=== PATIENT | male | born 1945 | race Caucasian/White ===

== ENCOUNTER 2017-04-26 10:39 | Emergency (ER) | payer MEDICARE, OTHER ==
[~2017-04-26] VITALS: Ht 172.7 cm; Wt 89.4 kg
[~2017-04-26 10:39] MED LIST: ALBUTEROL0.09 MG/A1 INH; B121000 MCG/2 IM; BACTRIM DS 8001 TA1 PO; BUMETANIDE0.5 MG PO; BUMETANIDE1 MG PO; BUMEX0.5 MG PO; CARVEDILOL12.5 MG PO; CIPRO500 MG PO; COREG12.5 M1 PO; COREG6.25 MG PO; COUMADIN0.5 MG PO; Coumadin2 MG PO; DIGOX0.125 MG PO; DISALCID500 M1 PO; DISALCID750 MG PO; DOCUSATE SOD100 MG PO; ENALAPRIL MALEA20 MG PO; EPLERENONE25 MG PO; EPLERENONE50 MG PO; FENOFIBRATE145 M1 PO; FLECAINIDE ACE100 M1 PO; FLECAINIDE ACE100 MG PO; FLOMAX0.4 MG PO; FONDAPARIN7.5 MG/0.6 SC; GABAPENTIN100 M2 PO; GEMCOR600 MG PO; GEMFIBROZIL600 MG PO; HYDROCODONE BIT1 T11 PO; IMDUR SA30 MG PO; IMDUR30 MG PO; INSPRA50 MG PO; IRON325 M1 PO; K-Lor 20MEQ20 MEQ PO; KEFLEX500 MG PO; KLOR-CON20 MEQ PO; LANOXIN0.125 MG PO; LANTUS100 U/ML SC; LIPITOR40 MG PO; MAGNESIUM400 M1 PO; METOLAZONE2.5 MG PO; MEXILETINE150 MG PO; NIACIN500 M1 PO; NIACIN500 M3 PO; NOVOLIN R100 U/ML SC; OMEGA 3 FISH O1 EACH PO; OMEGA 31000 MG PO; PRAVACHOL40 MG PO; PULMICORT RESP0.5 MG INH; RANEXA500 M1 PO; SPIRIVA -- 3018 MCG INH; Synthroid,Levo50 MCG PO; TAMSULOSIN HCL0.4 MG PO; TROPICAMIDE 1% OP; VITAMIN C250 M1 PO; WARFARIN SOD5 MG PO; ZESTRIL,PRINIVIL5 MG PO; ZESTRIL10 MG PO
[2017-04-26] MEDS ORDERED: CEPHALEXIN500 M1 PO (10:58)
== END 2017-04-26 11:06 | disposition home or self-care (01) ==
LOC: ED 10:39
DX: S30.861A Insect bite (nonvenomous) of abdominal wall, initial encounter (principal); L03.311 Cellulitis of abdominal wall; Z88.5 Allergy status to narcotic agent; Z79.899 Other long term (current) drug therapy; Z79.02 Long term (current) use of antithrombotics/antiplatelets; W57.XXXA Bitten or stung by nonvenomous insect and other nonvenomous arthropods, initial encounter; Y93.9 Activity, unspecified; Y92.9 Unspecified place or not applicable; Y99.9 Unspecified external cause status

== ENCOUNTER 2017-05-19 15:48 | Emergency (ER) | payer MEDICARE, OTHER ==
[~2017-05-19] VITALS: Ht 172.7 cm; Wt 90.7 kg
[~2017-05-19 15:48] MED LIST changes: +CEPHALEXIN500 M1 PO
[2017-05-19] MEDS ORDERED: AMOXICILLIN500 M2 PO (16:12)
== END 2017-05-19 18:26 | disposition home or self-care (01) ==
LOC: ED 15:48
DX: S61.411A Laceration without foreign body of right hand, initial encounter (principal); Z79.899 Other long term (current) drug therapy; Z79.02 Long term (current) use of antithrombotics/antiplatelets; Z88.5 Allergy status to narcotic agent; W45.8XXA Other foreign body or object entering through skin, initial encounter; Y93.89 Activity, other specified; Y92.89 Other specified places as the place of occurrence of the external cause; Y99.8 Other external cause status

== ENCOUNTER 2019-10-25 08:23 | Emergency (ER) | payer MEDICARE, OTHER ==
[~2019-10-25] VITALS: Ht 172.7 cm; Wt 89.4 kg
[~2019-10-25 08:23] MED LIST changes: +AMOXICILLIN500 M2 PO
[2019-10-25 08:55] LABS: BASO # 0.1 10*3/uL (0.0-0.1); BASO % 0.6 % (0.0-1.0); EOS # 0.1 10*3/uL (0.0-0.4); EOS % 0.9 % (1.0-4.0); HEMATOCRIT 39.2 % (42.0-52.0); HEMOGLOBIN 13.1 g/dl (14.0-18.0); LYMPH # 3.3 10*3/uL (1.3-4.4); LYMPH % 37.1 % (27.0-41.0); MEAN CELL VOLUME 95.8 fl (80.0-94.0); MEAN CORPUSCULAR HGB CONC 33.4 g/dl (33.0-37.0); MEAN PLATELET VOLUME 9.7 fl (9.6-12.3); MONO # 0.8 10*3/uL (0.1-1.0); NEUT # 4.5 10*3/uL (2.3-7.9); PLATELET COUNT AUTOMATED 242 10*3/uL (130-400); RED BLOOD COUNT 4.09 10*6/uL (4.50-5.90); RED CELL DISTRI WIDTH 12.4 % (0-14.5); WHITE BLOOD COUNT 8.8 10*3/uL (4.8-10.8)
[2019-10-25 09:12] LABS: ALBUMIN 3.5 gm/dl (3.1-4.5); ALKALINE PHOSPHATASE 35 U/L (45-117); BUN 22 mg/dl (7-24); CHLORIDE 108 mmol/L (98-107); CREATININE 1.41 mg/dL (0.70-1.30); LIPASE 145 U/L (73-393); POTASSIUM 4.5 mmol/L (3.5-5.1); SGOT/AST 12 IU/L (3-35); SGPT/ALT 27 U/L (12-78); SODIUM 141 mmol/L (136-145); TOTAL PROTEIN 6.4 gm/dL (6.4-8.2)
[2019-10-25 09:14] LABS: TROPONIN I < 0.015 ng/ml (<0.045)
[2019-10-25 09:24] LABS: ACT PARTIAL THROMBO TIME 34.5 SECONDS (20.0-32.1); INTERNATIONAL NORM RATIO 2.3 (2.0-3.5)
== END 2019-10-25 11:51 | disposition home or self-care (01) ==
LOC: ED 08:23
PROVIDERS: Emergency Medicine
DX: S00.01XA Abrasion of scalp, initial encounter (principal); R79.1 Abnormal coagulation profile; E11.9 Type 2 diabetes mellitus without complications; I48.91 Unspecified atrial fibrillation; I50.9 Heart failure, unspecified; I11.0 Hypertensive heart disease with heart failure; Z88.6 Allergy status to analgesic agent; Z79.899 Other long term (current) drug therapy; Z79.01 Long term (current) use of anticoagulants; W06.XXXA Fall from bed, initial encounter; Y93.89 Activity, other specified; Y92.89 Other specified places as the place of occurrence of the external cause; Y99.8 Other external cause status

== ENCOUNTER 2020-11-17 01:16 | Emergency (ER) | payer MEDICARE, OTHER ==
[~2020-11-17] VITALS: Ht 172.7 cm; Wt 94.3 kg
[2020-11-17 01:59] LABS: BASO # 0.1 10*3/uL (0.0-0.1); BASO % 0.6 % (0.0-1.0); EOS # 0.1 10*3/uL (0.0-0.4); EOS % 0.8 % (1.0-4.0); LYMPH # 2.9 10*3/uL (1.3-4.4); LYMPH % 32.7 % (27.0-41.0); MEAN CELL VOLUME 96.2 fl (80.0-94.0); MEAN CORPUSCULAR HGB 30.9 pg (27.0-31.0); MEAN CORPUSCULAR HGB CONC 32.1 g/dl (33.0-37.0); MEAN PLATELET VOLUME 10.1 fl (9.6-12.3); MONO # 0.8 10*3/uL (0.1-1.0); MONO % 8.8 % (3.0-9.0); NEUT % 56.4 % (47.0-73.0); PLATELET COUNT AUTOMATED 332 10*3/uL (130-400); RED BLOOD COUNT 4.47 10*6/uL (4.50-5.90); RED CELL DISTRI WIDTH 13.6 % (0-14.5); WHITE BLOOD COUNT 8.9 10*3/uL (4.8-10.8)
[2020-11-17 02:17] LABS: ALBUMIN 3.3 gm/dl (3.1-4.5); CREATININE 1.6 mg/dL (0.70-1.30); POTASSIUM 3.8 mmol/L (3.5-5.1); TOTAL PROTEIN 7.1 gm/dL (6.4-8.2)
[2020-11-17 02:18] LABS: TROPONIN I 0.033 ng/ml (<0.045)
== END 2020-11-17 05:00 | disposition home or self-care (01) ==
LOC: ED 01:16
PROVIDERS: Internal Medicine
DX: I13.0 Hypertensive heart and chronic kidney disease with heart failure and stage 1 through stage 4 chronic kidney disease, or unspecified chronic kidney disease (principal); E11.22 Type 2 diabetes mellitus with diabetic chronic kidney disease; I50.21 Acute systolic (congestive) heart failure; N18.31 Chronic kidney disease, stage 3a; I48.20 Chronic atrial fibrillation, unspecified; J44.9 Chronic obstructive pulmonary disease, unspecified; Z88.8 Allergy status to other drugs, medicaments and biological substances; Z79.899 Other long term (current) drug therapy; Z79.01 Long term (current) use of anticoagulants; Z95.0 Presence of cardiac pacemaker; Z90.49 Acquired absence of other specified parts of digestive tract; Z79.4 Long term (current) use of insulin

== ENCOUNTER 2020-12-02 15:51 | Inpatient (IN) | payer OTHER ==
[~2020-12-02] VITALS: Ht 172.7 cm; Wt 92.5 kg
[2020-12-02 15:59] VITALS: BP 122/91
[2020-12-02 16:33] LABS: BASO % 0.5 % (0.0-1.0); EOS # 0.1 10*3/uL (0.0-0.4); EOS % 0.6 % (1.0-4.0); HEMATOCRIT 42.9 % (42.0-52.0); LYMPH # 2.9 10*3/uL (1.3-4.4); MEAN CELL VOLUME 97.9 fl (80.0-94.0); MEAN CORPUSCULAR HGB 30.6 pg (27.0-31.0); MEAN CORPUSCULAR HGB CONC 31.2 g/dl (33.0-37.0); MEAN PLATELET VOLUME 10.5 fl (9.6-12.3); MONO # 0.8 10*3/uL (0.1-1.0); MONO % 9.7 % (3.0-9.0); NEUT # 4.1 10*3/uL (2.3-7.9); NEUT % 51.8 % (47.0-73.0); PLATELET COUNT AUTOMATED 263 10*3/uL (130-400); RED BLOOD COUNT 4.38 10*6/uL (4.50-5.90); RED CELL DISTRI WIDTH 13.9 % (0-14.5); WHITE BLOOD COUNT 7.8 10*3/uL (4.8-10.8)
[2020-12-02 16:49] LABS: ACT PARTIAL THROMBO TIME 49.7 SECONDS (20.0-32.1)
[2020-12-02 16:52] LABS: ALBUMIN 3.5 gm/dl (3.1-4.5); ALKALINE PHOSPHATASE 40 U/L (45-117); BUN 25 mg/dl (7-24); CHLORIDE 111 mmol/L (98-107); CREATININE 1.63 mg/dL (0.70-1.30); LIPASE 94 U/L (73-393); POTASSIUM 4.6 mmol/L (3.5-5.1); SGOT/AST 19 IU/L (3-35); SGPT/ALT 28 U/L (12-78); SODIUM 144 mmol/L (136-145); TOTAL PROTEIN 6.9 gm/dL (6.4-8.2); TROPONIN I 0.028 ng/ml (<0.045)
[2020-12-02 16:58] LABS: INTERNATIONAL NORM RATIO 5.1 (2.0-3.5)
[2020-12-02 19:02] VITALS: BP 120/89
[2020-12-02 20:50] VITALS: BP 123/78
[2020-12-02 23:35] VITALS: BP 137/88
[2020-12-03] MEDS ORDERED: METOPROLOL SUCC25 M2 PO (01:24)
[2020-12-03] MEDS ORDERED: BUMETANIDE1 MG PO (02:07)
[2020-12-03] MEDS ORDERED: TOPROL XL25 MG PO (02:07)
[2020-12-03] MEDS ORDERED: BUMETANIDE0.5 MG PO (02:08)
[2020-12-03] MEDS ORDERED: NOVOLOG100 UNIT/1 SQ (02:09)
[2020-12-03] MEDS ORDERED: PROVENTIL HFA6.7 GM PO (02:11)
[2020-12-03] MEDS ORDERED: JARDIANCE25 MG PO (02:12)
[2020-12-03] MEDS ORDERED: PROSCAR5 M1 PO (02:12)
[2020-12-03] MEDS ORDERED: WARFARIN SOD5 MG PO ×2 (02:14→02:15)
[2020-12-03] MEDS ORDERED: NEURONTIN100 MG PO (02:16)
[2020-12-03] MEDS ORDERED: FLOMAX0.4 MG PO (02:16)
[2020-12-03] MEDS ORDERED: MEXILETINE150 MG PO (02:18)
[2020-12-03] MEDS ORDERED: INSPRA50 MG PO (02:18)
[2020-12-03] MEDS ORDERED: RANOLAZINE ER1000 MG PO (02:19)
[2020-12-03] MEDS ORDERED: PROTONIX20 MG PO (02:20)
[2020-12-03] MEDS ORDERED: VITAMIN B COMP1 EAC1 PO (02:21)
[2020-12-03] MEDS ORDERED: LIPITOR80 MG PO (02:22)
[2020-12-03] MEDS ORDERED: GLUCOPHAGE500 M1 PO (02:23)
[2020-12-03] MEDS ORDERED: DIGOX125 MCG PO (02:24)
[2020-12-03] MEDS ORDERED: OMEGA-31000 M1 PO (02:24)
[2020-12-03] MEDS ORDERED: LEVOTHYROXINE50 MCG PO (02:29)
[2020-12-03] MEDS ORDERED: STRIVERDI RESPIM4 GM PO (02:30)
[2020-12-03] MEDS ORDERED: FENOFIBRATE145 M1 PO (02:31)
[2020-12-03] MEDS ORDERED: POTASSIUM20 MEQ/16 PO (02:35)
[2020-12-03] MEDS ORDERED: ENTRESTO 49 MG1 EACH PO (02:40)
[2020-12-03 06:21] LABS: CREATININE 1.67 mg/dL (0.70-1.30); POTASSIUM 3.8 mmol/L (3.5-5.1)
[2020-12-03 06:22] LABS: BASO % 0.5 % (0.0-1.0); EOS # 0.1 10*3/uL (0.0-0.4); EOS % 0.7 % (1.0-4.0); HEMATOCRIT 41.7 % (42.0-52.0); LYMPH # 2.9 10*3/uL (1.3-4.4); LYMPH % 37.7 % (27.0-41.0); MEAN CELL VOLUME 97.7 fl (80.0-94.0); MEAN CORPUSCULAR HGB 30.2 pg (27.0-31.0); MEAN CORPUSCULAR HGB CONC 30.9 g/dl (33.0-37.0); MEAN PLATELET VOLUME 11.1 fl (9.6-12.3); MONO # 0.8 10*3/uL (0.1-1.0); MONO % 10.1 % (3.0-9.0); NEUT # 3.9 10*3/uL (2.3-7.9); NEUT % 50.6 % (47.0-73.0); PLATELET COUNT AUTOMATED 243 10*3/uL (130-400); RED BLOOD COUNT 4.27 10*6/uL (4.50-5.90); RED CELL DISTRI WIDTH 13.7 % (0-14.5); WHITE BLOOD COUNT 7.6 10*3/uL (4.8-10.8)
[2020-12-03 06:28] LABS: INTERNATIONAL NORM RATIO 4.2 (2.0-3.5)
[2020-12-03 08:00] VITALS: BP 113/88
[2020-12-03 12:00] VITALS: BP 125/68
[2020-12-03 16:00] VITALS: BP 91/54
[2020-12-03 20:00] VITALS: BP 98/62
[2020-12-04] VITALS: BP 98/55
[2020-12-04 06:37] LABS: BASO # 0.1 10*3/uL (0.0-0.1); BASO % 0.7 % (0.0-1.0); EOS # 0.1 10*3/uL (0.0-0.4); EOS % 0.9 % (1.0-4.0); HEMATOCRIT 44.7 % (42.0-52.0); LYMPH # 2.9 10*3/uL (1.3-4.4); LYMPH % 38.5 % (27.0-41.0); MEAN CELL VOLUME 95.9 fl (80.0-94.0); MEAN CORPUSCULAR HGB 30.7 pg (27.0-31.0); MEAN PLATELET VOLUME 10.9 fl (9.6-12.3); MONO # 0.8 10*3/uL (0.1-1.0); MONO % 11.1 % (3.0-9.0); NEUT # 3.6 10*3/uL (2.3-7.9); NEUT % 48.5 % (47.0-73.0); PLATELET COUNT AUTOMATED 256 10*3/uL (130-400); RED BLOOD COUNT 4.66 10*6/uL (4.50-5.90); RED CELL DISTRI WIDTH 13.6 % (0-14.5); WHITE BLOOD COUNT 7.5 10*3/uL (4.8-10.8)
[2020-12-04 06:52] LABS: INTERNATIONAL NORM RATIO 2.8 (2.0-3.5)
[2020-12-04 07:07] LABS: CREATININE 1.54 mg/dL (0.70-1.30); POTASSIUM 3.2 mmol/L (3.5-5.1); TOTAL PROTEIN 6.1 gm/dL (6.4-8.2)
[2020-12-04 08:00] VITALS: BP 91/68
[2020-12-04 12:00] VITALS: BP 100/56
[2020-12-04 16:00] VITALS: BP 100/62
[2020-12-04 20:00] VITALS: BP 99/57
[2020-12-05] VITALS: BP 94/62
[2020-12-05 06:34] LABS: INTERNATIONAL NORM RATIO 2.4 (2.0-3.5)
[2020-12-05 06:44] LABS: ALBUMIN 2.9 gm/dl (3.1-4.5); ALKALINE PHOSPHATASE 35 U/L (45-117); BUN 20 mg/dl (7-24); CHLORIDE 108 mmol/L (98-107); CREATININE 1.32 mg/dL (0.70-1.30); POTASSIUM 3.3 mmol/L (3.5-5.1); SGOT/AST 10 IU/L (3-35); SGPT/ALT 19 U/L (12-78); SODIUM 142 mmol/L (136-145); TOTAL PROTEIN 5.8 gm/dL (6.4-8.2)
[2020-12-05 08:00] VITALS: BP 130/68
[2020-12-05] MEDS ORDERED: JANTOVEN4 M1 PO (09:53)
== END 2020-12-05 13:30 | disposition home or self-care (01) | DRG 291 ==
LOC: ED 15:51 → 4E 17:36 → EDHOLD 17:36 → 4E 22:55
PROVIDERS: Emergency Medicine; Hospitalist; Internal Medicine; ADMIT Internal Medicine; ATTEND Internal Medicine
PROC: 4B02XTZ Measurement of Cardiac Defibrillator, External Approach (ICD-10-PCS; principal; 2020-12-04)
DX: I13.0 Hypertensive heart and chronic kidney disease with heart failure and stage 1 through stage 4 chronic kidney disease, or unspecified chronic kidney disease (principal); I50.23 Acute on chronic systolic (congestive) heart failure; E87.2 Acidosis; R65.10 Systemic inflammatory response syndrome (SIRS) of non-infectious origin without acute organ dysfunction; I47.2 Ventricular tachycardia; E11.22 Type 2 diabetes mellitus with diabetic chronic kidney disease; N18.31 Chronic kidney disease, stage 3a; E83.41 Hypermagnesemia; I48.91 Unspecified atrial fibrillation; D53.9 Nutritional anemia, unspecified; E78.5 Hyperlipidemia, unspecified; E87.8 Other disorders of electrolyte and fluid balance, not elsewhere classified; E11.65 Type 2 diabetes mellitus with hyperglycemia; I25.10 Atherosclerotic heart disease of native coronary artery without angina pectoris; Z20.822 Contact with and (suspected) exposure to COVID-19; Z88.6 Allergy status to analgesic agent; Z90.49 Acquired absence of other specified parts of digestive tract; Z95.810 Presence of automatic (implantable) cardiac defibrillator; Z98.52 Vasectomy status; Z82.49 Family history of ischemic heart disease and other diseases of the circulatory system; Z80.8 Family history of malignant neoplasm of other organs or systems; Z68.31 Body mass index [BMI] 31.0-31.9, adult

== ENCOUNTER 2021-03-14 15:38 | Emergency (ER) | payer MEDICARE, OTHER ==
[~2021-03-14] VITALS: Ht 248.9 cm; Wt 89.4 kg
[~2021-03-14 15:38] MED LIST changes: +DIGOX125 MCG PO; +ENTRESTO 49 MG1 EACH PO; +GLUCOPHAGE500 M1 PO; +JANTOVEN4 M1 PO; +JARDIANCE25 MG PO; +LEVOTHYROXINE50 MCG PO; +LIPITOR80 MG PO; +METOPROLOL SUCC25 M2 PO; +NEURONTIN100 MG PO; +NOVOLOG100 UNIT/1 SQ; +OMEGA-31000 M1 PO; +POTASSIUM20 MEQ/16 PO; +PROSCAR5 M1 PO; +PROTONIX20 MG PO; +PROVENTIL HFA6.7 GM PO; +RANOLAZINE ER1000 MG PO; +STRIVERDI RESPIM4 GM PO; +TOPROL XL25 MG PO; +VITAMIN B COMP1 EAC1 PO
[2021-03-14 16:25] LABS: BASO % 0.4 % (0.0-1.0); EOS % 0.4 % (1.0-4.0); HEMATOCRIT 41.3 % (42.0-52.0); LYMPH # 2.4 10*3/uL (1.3-4.4); LYMPH % 32.5 % (27.0-41.0); MEAN CORPUSCULAR HGB 30.2 pg (27.0-31.0); MEAN CORPUSCULAR HGB CONC 32.4 g/dl (33.0-37.0); MEAN PLATELET VOLUME 10.6 fl (9.6-12.3); MONO # 0.6 10*3/uL (0.1-1.0); MONO % 7.3 % (3.0-9.0); NEUT # 4.4 10*3/uL (2.3-7.9); NEUT % 58.9 % (47.0-73.0); PLATELET COUNT AUTOMATED 224 10*3/uL (130-400); RED BLOOD COUNT 4.44 10*6/uL (4.50-5.90); RED CELL DISTRI WIDTH 14.6 % (0-14.5); WHITE BLOOD COUNT 7.5 10*3/uL (4.8-10.8)
[2021-03-14 16:41] LABS: BUN 20 mg/dl (7-24); CHLORIDE 109 mmol/L (98-107); CREATININE 1.47 mg/dL (0.70-1.30); POTASSIUM 3.7 mmol/L (3.5-5.1); SODIUM 143 mmol/L (136-145)
[2021-03-14 16:42] LABS: TROPONIN I < 0.015 ng/ml (<0.045)
== END 2021-03-14 17:55 | disposition home or self-care (01) ==
LOC: ED 15:38
PROVIDERS: Emergency Medicine
DX: S06.309A Unspecified focal traumatic brain injury with loss of consciousness of unspecified duration, initial encounter (principal); S80.211A Abrasion, right knee, initial encounter; I13.0 Hypertensive heart and chronic kidney disease with heart failure and stage 1 through stage 4 chronic kidney disease, or unspecified chronic kidney disease; E11.22 Type 2 diabetes mellitus with diabetic chronic kidney disease; N18.30 Chronic kidney disease, stage 3 unspecified; I50.9 Heart failure, unspecified; E78.5 Hyperlipidemia, unspecified; I48.91 Unspecified atrial fibrillation; Z79.01 Long term (current) use of anticoagulants; Z88.6 Allergy status to analgesic agent; Z79.899 Other long term (current) drug therapy; Z79.4 Long term (current) use of insulin; Z90.49 Acquired absence of other specified parts of digestive tract; Z95.0 Presence of cardiac pacemaker; Z87.891 Personal history of nicotine dependence; W01.0XXA Fall on same level from slipping, tripping and stumbling without subsequent striking against object, initial encounter; Y93.89 Activity, other specified; Y92.096 Garden or yard of other non-institutional residence as the place of occurrence of the external cause; Y99.8 Other external cause status

== ENCOUNTER 2021-08-27 15:54 | Emergency (ER) | payer MEDICARE, OTHER | END 2021-08-27 17:00 | disposition left against medical advice (07) | LOC: ED 15:54 | DX: Z53.21 Procedure and treatment not carried out due to patient leaving prior to being seen by health care provider (principal) ==

== ENCOUNTER 2021-09-12 08:12 | Emergency (ER) | payer MEDICARE, OTHER ==
[~2021-09-12] VITALS: Ht 172.7 cm; Wt 81.6 kg
[2021-09-12 08:43] LABS: BASO % 0.4 % (0.0-1.0); EOS # 0.1 10*3/uL (0.0-0.4); EOS % 1.5 % (1.0-4.0); HEMATOCRIT 41.7 % (42.0-52.0); LYMPH # 1.9 10*3/uL (1.3-4.4); LYMPH % 25.8 % (27.0-41.0); MEAN CELL VOLUME 92.7 fl (80.0-94.0); MEAN CORPUSCULAR HGB CONC 32.4 g/dl (33.0-37.0); MEAN PLATELET VOLUME 10.3 fl (9.6-12.3); MONO # 0.7 10*3/uL (0.1-1.0); MONO % 9.8 % (3.0-9.0); NEUT # 4.5 10*3/uL (2.3-7.9); NEUT % 62.4 % (47.0-73.0); PLATELET COUNT AUTOMATED 238 10*3/uL (130-400); RED CELL DISTRI WIDTH 13.2 % (0-14.5); WHITE BLOOD COUNT 7.2 10*3/uL (4.8-10.8)
[2021-09-12 08:55] LABS: INTERNATIONAL NORM RATIO 1.2 (2.0-3.5)
[2021-09-12 09:02] LABS: ALBUMIN 3.4 gm/dl (3.1-4.5); CREATININE 1.63 mg/dL (0.70-1.30); POTASSIUM 3.4 mmol/L (3.5-5.1)
== END 2021-09-12 12:25 | disposition home or self-care (01) ==
LOC: ED 08:12
PROVIDERS: Emergency Medicine
DX: R07.9 Chest pain, unspecified (principal); E78.5 Hyperlipidemia, unspecified; I13.0 Hypertensive heart and chronic kidney disease with heart failure and stage 1 through stage 4 chronic kidney disease, or unspecified chronic kidney disease; E11.22 Type 2 diabetes mellitus with diabetic chronic kidney disease; N18.30 Chronic kidney disease, stage 3 unspecified; Z79.899 Other long term (current) drug therapy; Z88.8 Allergy status to other drugs, medicaments and biological substances; Z87.891 Personal history of nicotine dependence

== ENCOUNTER 2021-10-12 19:30 | Inpatient (IN) | payer MEDICARE, OTHER ==
[~2021-10-12] VITALS: Ht 172.7 cm; Wt 86.2 kg
[2021-10-12 19:36] VITALS: BP 95/69
[2021-10-12 19:55] LABS: BASO % 0.5 % (0.0-1.0); EOS % 0.7 % (1.0-4.0); HEMATOCRIT 41.1 % (42.0-52.0); LYMPH # 1.7 10*3/uL (1.3-4.4); LYMPH % 30.7 % (27.0-41.0); MEAN CELL VOLUME 92.6 fl (80.0-94.0); MEAN CORPUSCULAR HGB 29.1 pg (27.0-31.0); MEAN CORPUSCULAR HGB CONC 31.4 g/dl (33.0-37.0); MONO # 0.5 10*3/uL (0.1-1.0); MONO % 8.5 % (3.0-9.0); NEUT # 3.3 10*3/uL (2.3-7.9); NEUT % 59.4 % (47.0-73.0); PLATELET COUNT AUTOMATED 221 10*3/uL (130-400); RED BLOOD COUNT 4.44 10*6/uL (4.50-5.90); RED CELL DISTRI WIDTH 13.5 % (0-14.5); WHITE BLOOD COUNT 5.5 10*3/uL (4.8-10.8)
[2021-10-12 20:08] LABS: ACT PARTIAL THROMBO TIME 29.1 SECONDS (20.0-32.1); INTERNATIONAL NORM RATIO 1.2 (2.0-3.5)
[2021-10-12 20:10] LABS: ALBUMIN 3.3 gm/dl (3.1-4.5); CREATININE 1.65 mg/dL (0.70-1.30); POTASSIUM 4.3 mmol/L (3.5-5.1); TOTAL PROTEIN 6.6 gm/dL (6.4-8.2)
[2021-10-12 20:53] VITALS: BP 102/72
[2021-10-13] MEDS ORDERED: BUMETANIDE2 MG PO (03:06)
[2021-10-13 06:16] LABS: INTERNATIONAL NORM RATIO 1.1 (2.0-3.5)
[2021-10-13 06:26] LABS: ALBUMIN 3.3 gm/dl (3.1-4.5); BUN 18 mg/dl (7-24); CHLORIDE 106 mmol/L (98-107); CHOLESTEROL 103 mg/dL (<200); CREATININE 1.37 mg/dL (0.70-1.30); POTASSIUM 3.7 mmol/L (3.5-5.1); SGOT/AST 11 IU/L (3-35); SGPT/ALT 32 U/L (12-78); SODIUM 142 mmol/L (136-145); TOTAL PROTEIN 6.7 gm/dL (6.4-8.2); TRIGLYCERIDES 98 mg/dl (<150)
[2021-10-13 06:29] LABS: ALKALINE PHOSPHATASE 94 U/L (45-117); LDL CHOLESTEROL 34 mg/dL (9-159)
[2021-10-13 06:32] LABS: BASO % 0.7 % (0.0-1.0); EOS # 0.1 10*3/uL (0.0-0.4); EOS % 1.2 % (1.0-4.0); HEMATOCRIT 41.7 % (42.0-52.0); LYMPH # 2.3 10*3/uL (1.3-4.4); MEAN CELL VOLUME 93.9 fl (80.0-94.0); MEAN CORPUSCULAR HGB 29.1 pg (27.0-31.0); MEAN CORPUSCULAR HGB CONC 30.9 g/dl (33.0-37.0); MONO # 0.5 10*3/uL (0.1-1.0); NEUT # 2.9 10*3/uL (2.3-7.9); NEUT % 49.8 % (47.0-73.0); PLATELET COUNT AUTOMATED 211 10*3/uL (130-400); RED BLOOD COUNT 4.44 10*6/uL (4.50-5.90); RED CELL DISTRI WIDTH 13.6 % (0-14.5); WHITE BLOOD COUNT 5.9 10*3/uL (4.8-10.8)
[2021-10-13 08:05] VITALS: BP 102/64
[2021-10-13 16:00] VITALS: BP 142/84; BP 95/67
[2021-10-13] MEDS ORDERED: ELIQUIS5 M1 PO (18:38)
[2021-10-13] MEDS ORDERED: OMEPRAZOLE40 MG PO (18:39)
[2021-10-13] MEDS ORDERED: OZEMPIC1 MG/0.71 SQ (18:41)
[2021-10-13] MEDS ORDERED: VITAMIN C500 M5 PO (19:12)
[2021-10-13] MEDS ORDERED: TYLENOL325 M1 PO (19:12)
[2021-10-13] MEDS ORDERED: VITAMIN D325 MCG PO (19:16)
[2021-10-13] MEDS ORDERED: B121000 MCG/1 IM (19:42)
[2021-10-13] MEDS ORDERED: JARDIANCE10 MG PO (19:43)
[2021-10-13] MEDS ORDERED: EPLERENONE25 MG PO (19:44)
[2021-10-13] MEDS ORDERED: MAGNESIUM400 M1 PO (19:45)
[2021-10-13 20:58] VITALS: BP 103/68
[2021-10-14] VITALS (8 sets, daily range): BP systolic 82–102; BP diastolic 50–70
[2021-10-14] MEDS ORDERED: LANTUS SOL100 UNIT/1 SC (00:34)
[2021-10-14 06:44] LABS: BUN 16 mg/dl (7-24); CHLORIDE 109 mmol/L (98-107); CREATININE 1.25 mg/dL (0.70-1.30); POTASSIUM 3.4 mmol/L (3.5-5.1); SODIUM 144 mmol/L (136-145)
[2021-10-14 06:57] LABS: BASO % 0.7 % (0.0-1.0); EOS # 0.1 10*3/uL (0.0-0.4); EOS % 1.3 % (1.0-4.0); HEMATOCRIT 39.5 % (42.0-52.0); LYMPH # 1.8 10*3/uL (1.3-4.4); LYMPH % 33.3 % (27.0-41.0); MEAN CELL VOLUME 92.3 fl (80.0-94.0); MEAN CORPUSCULAR HGB 28.7 pg (27.0-31.0); MEAN CORPUSCULAR HGB CONC 31.1 g/dl (33.0-37.0); MEAN PLATELET VOLUME 10.8 fl (9.6-12.3); MONO # 0.5 10*3/uL (0.1-1.0); MONO % 9.6 % (3.0-9.0); NEUT % 54.9 % (47.0-73.0); PLATELET COUNT AUTOMATED 207 10*3/uL (130-400); RED BLOOD COUNT 4.28 10*6/uL (4.50-5.90); RED CELL DISTRI WIDTH 13.5 % (0-14.5); WHITE BLOOD COUNT 5.4 10*3/uL (4.8-10.8)
[2021-10-14] MEDS ORDERED: DOBUTAMINE IV (13:57)
[2021-10-15 06:25] LABS: BASO % 0.4 % (0.0-1.0); EOS # 0.1 10*3/uL (0.0-0.4); EOS % 1.1 % (1.0-4.0); HEMATOCRIT 41.6 % (42.0-52.0); LYMPH # 2.1 10*3/uL (1.3-4.4); LYMPH % 39.2 % (27.0-41.0); MEAN CELL VOLUME 92.7 fl (80.0-94.0); MEAN CORPUSCULAR HGB 29.2 pg (27.0-31.0); MEAN CORPUSCULAR HGB CONC 31.5 g/dl (33.0-37.0); MEAN PLATELET VOLUME 10.8 fl (9.6-12.3); MONO # 0.5 10*3/uL (0.1-1.0); MONO % 8.9 % (3.0-9.0); NEUT # 2.6 10*3/uL (2.3-7.9); PLATELET COUNT AUTOMATED 198 10*3/uL (130-400); RED BLOOD COUNT 4.49 10*6/uL (4.50-5.90); RED CELL DISTRI WIDTH 13.7 % (0-14.5); WHITE BLOOD COUNT 5.3 10*3/uL (4.8-10.8)
[2021-10-15 06:47] LABS: CREATININE 1.41 mg/dL (0.70-1.30); POTASSIUM 3.8 mmol/L (3.5-5.1)
[2021-10-15 08:00] VITALS: BP 100/62
[2021-10-15 12:00] VITALS: BP 96/57
[2021-10-15 16:00] VITALS: BP 91/58
[2021-10-15 18:50] VITALS: BP 76/56
[2021-10-15 20:00] VITALS: BP 87/54
[2021-10-16] VITALS: BP 89/63
[2021-10-16 05:30] VITALS: BP 90/61
[2021-10-16 06:58] LABS: CREATININE 1.69 mg/dL (0.70-1.30); POTASSIUM 4.2 mmol/L (3.5-5.1)
[2021-10-16 08:00] VITALS: BP 85/60
[2021-10-16 12:00] VITALS: BP 76/54
[2021-10-16 12:04] LABS: BILIRUBIN 1+ (Negative); BLOOD Negative (Negative); CLARITY Clear (Clear); COLOR Dark Yellow (Yellow); GLUCOSE Trace (Negative); KETONE Trace (Negative); LEUKO ESTERASE 1+ (Negative); NITRITE Negative (Negative); SPECIFIC GRAVITY 1.025 (1.001-1.030)
[2021-10-16 12:44] LABS: CALCIUM OXALATE CRYSTALS 1+
[2021-10-16 12:45] LABS: BACTERIA 2+; HYALINE CAST TNTC
== END 2021-10-16 15:14 | disposition short-term general hospital (02) | DRG 291 ==
LOC: ED 19:30 → EDHOLD 22:44 → 5E 22:44
PROVIDERS: Internal Medicine; ADMIT Family Medicine; ATTEND Family Medicine
DX: I13.0 Hypertensive heart and chronic kidney disease with heart failure and stage 1 through stage 4 chronic kidney disease, or unspecified chronic kidney disease (principal); I50.23 Acute on chronic systolic (congestive) heart failure; N17.0 Acute kidney failure with tubular necrosis; E44.0 Moderate protein-calorie malnutrition; Z66 Do not resuscitate; D64.9 Anemia, unspecified; N18.32 Chronic kidney disease, stage 3b; Z51.5 Encounter for palliative care; I25.10 Atherosclerotic heart disease of native coronary artery without angina pectoris; E83.41 Hypermagnesemia; I48.91 Unspecified atrial fibrillation; E11.22 Type 2 diabetes mellitus with diabetic chronic kidney disease; E11.65 Type 2 diabetes mellitus with hyperglycemia; Z79.4 Long term (current) use of insulin; Z95.810 Presence of automatic (implantable) cardiac defibrillator; Z79.51 Long term (current) use of inhaled steroids; Z79.899 Other long term (current) drug therapy; Z88.5 Allergy status to narcotic agent; Z87.891 Personal history of nicotine dependence; Z68.29 Body mass index [BMI] 29.0-29.9, adult

== ENCOUNTER 2021-11-18 09:10 | Emergency (ER) | payer MEDICARE, OTHER ==
[~2021-11-18] VITALS: Wt 78.9 kg
== END 2021-11-18 11:31 | disposition home or self-care (01) ==
LOC: ED 09:10
DX: S09.90XA Unspecified injury of head, initial encounter (principal); Z88.8 Allergy status to other drugs, medicaments and biological substances; Z79.899 Other long term (current) drug therapy; Z98.890 Other specified postprocedural states; Z87.891 Personal history of nicotine dependence; Z90.49 Acquired absence of other specified parts of digestive tract; W06.XXXA Fall from bed, initial encounter; Y93.89 Activity, other specified; Y92.89 Other specified places as the place of occurrence of the external cause; Y99.8 Other external cause status

== ENCOUNTER → 2021-11-18 | Outpatient (CLI) | payer OTHER ==
[~2021-11-18] MED LIST changes: +B121000 MCG/1 IM; +BUMETANIDE2 MG PO; +DOBUTAMINE IV; +ELIQUIS5 M1 PO; +JARDIANCE10 MG PO; +LANTUS SOL100 UNIT/1 SC; +OMEPRAZOLE40 MG PO; +OZEMPIC1 MG/0.71 SQ; +TYLENOL325 M1 PO; +VITAMIN C500 M5 PO; +VITAMIN D325 MCG PO
[2021-11-18 12:45] LABS: BUN 19 mg/dl (7-24); CHLORIDE 108 mmol/L (98-107); CREATININE 1.28 mg/dL (0.70-1.30); POTASSIUM 4.3 mmol/L (3.5-5.1); SODIUM 143 mmol/L (136-145)
== END ==
LOC: LAB 12:11
PROVIDERS: ATTEND Clinical Nurse Specialist Medical-Surgical
DX: I50.22 Chronic systolic (congestive) heart failure (principal)